=== PATIENT | female | born 1940 | race Caucasian/White ===

== ENCOUNTER → 2019-05-17 | Outpatient (CLI) | payer MEDICARE, OTHER ==
[~2019-05-17] MED LIST: ALLEGRA180 MG PO; ASPIR 8181 MG PO; CARVEDILOL6.25 MG PO; CIPRO250 M1 PO; COLACE100 MG PO; DOXYCYCLINE 10100 MG; FISH OIL 1,001000 M2 PO; LEVAQUIN 750 M750 MG PO; PREDNISONE 20 M20 M1 PO; PREDNISONE 20 M20 MG PO; SUDAFED30 MG; VICODIN 5-5001 EACH PO; ZOFRAN ODT4 MG PO; ZOFRAN ODT4 MG SUBLING; ZPAK
== END ==
LOC: M.RAD 07:36
DX: Z12.31 Encounter for screening mammogram for malignant neoplasm of breast (principal)

== ENCOUNTER → 2019-05-24 | Outpatient (CLI) | payer MEDICARE, OTHER | LOC: M.RAD 07:31 | DX: R92.1 Mammographic calcification found on diagnostic imaging of breast (principal) ==

== ENCOUNTER 2019-12-02 14:16 | Emergency (ER) | payer MEDICARE, OTHER ==
[~2019-12-02] VITALS: Ht 160 cm; Wt 55.8 kg
[2019-12-02] MEDS ORDERED: NORVASC 2.5 MG2.5 M1 PO (14:31)
[2019-12-02] MEDS ORDERED: GABAPENTIN100 MG PO (14:32)
[2019-12-02] MEDS ORDERED: CLONIDINE HCL0.2 M2 PO (14:33)
[2019-12-02 14:36] LABS: ABSOLUTE BASOPHILS 0.1 thou/uL (0.0-0.2); ABSOLUTE EOSINOPHILS 0.1 thou/uL (0.0-0.7); ABSOLUTE LYMPHOCYTES 1.6 thou/uL (0.8-5.3); ABSOLUTE MONOCYTES 0.6 thou/uL (0.0-1.2); ABSOLUTE NEUTROPHILS 3.9 thou/uL (1.6-8.1); EOSINOPHILS 2.2 %; HEMOGLOBIN 13.6 gm/dL (12.0-15.0); LYMPHOCYTES 25.3 %; MCH 29.5 pg (26.0-34.0); MCHC 33.9 g/dL (28.0-37.0); MCV 87.1 fL (80.0-100.0); MONOCYTES 9.9 %; MPV 8.8 fl. (7.2-11.1); NUCLEATED RBCS 0 /100WBC; PLATELET COUNT* 199 thou/uL (150-400); POLYS 61.6 %; RBC 4.59 mil/uL (4.20-5.00); WBC 6.4 thou/uL (4.0-11.0)
[2019-12-02 14:48] LABS: CALCIUM 8.7 mg/dL (8.5-10.1); CREATININE 1.2 mg/dL (0.6-1.3)
[2019-12-02 14:52] LABS: TOTAL BILIRUBIN 0.7 mg/dL (<0.1-1.0); TOTAL PROTEIN 7.1 g/dL (6.4-8.2)
[2019-12-02 15:31] LABS: URINE BILIRUBIN NEGATIVE (Negative); URINE BLOOD NEGATIVE (Negative); URINE CLARITY CLEAR; URINE COLOR YELLOW; URINE GLUCOSE-RANDOM NEGATIVE (Negative); URINE KETONES NEGATIVE (Negative); URINE LEUKOCYTES-REFLEX NEGATIVE (Negative); URINE NITRITE-REFLEX NEGATIVE (Negative); URINE PROTEIN NEGATIVE (Negative); URINE SPECIFIC GRAVITY 1.015 (1.005-1.030); URINE UROBILINOGEN 0.2 E.U./dl (0.2-1.0)
[2019-12-02] MEDS ORDERED: CATAPRES0.1 MG PO (16:15)
[2019-12-02] MEDS ORDERED: ONDANSETRON ODT4 MG PO (16:15)
[2019-12-02 16:33] VITALS: BP 161/64
--- NOTE | 2019-12-04 14:47 | EKG ---
[place] [address] ELECTROCARDIOGRAM REPORT Name: MARY ANN DELUCA Room: [facility]#: [id number] Admission: 12/02/19 Attend Phys: Discharge: 12/02/19 Date of : 40 Date of Service: 12/02/19 1434 Report #: [id number] THIS REPORT FOR: //name// [facility] ED Test Date: 2019-12-02 Test Time: 14:34:04 Pat Name: MARY ANN DELUCA Department: Room: Gender: F [employer]: TDS : 1940 Requested By: Lakshmi Willis Order Number: [id number] MD: Jp Nielsen Measurements Intervals [place] Rate: 76 P: 75 CO: 134 QRS: 78 QRSD: 98 T: 50 QT: 387 QTc: 436 Interpretive Statements Sinus rhythm Probable left atrial enlargement Compared to ECG 01/27/2016 12:55:30 ST (T wave) deviation no longer present Electronically Signed On 12-04-2019 14:46:23 CDT by Jp Nielsen [email or web address] <ELECTRONICALLY SIGNED> By: Jp Nielsen MD, [facility] 12/04/19 1446 1434 1434 Jp Nielsen MD, [facility] /EPI
== END 2019-12-02 16:34 | disposition home or self-care (01) ==
LOC: M.ERS 14:16
PROVIDERS: Physician Assistant
DX: I10 Essential (primary) hypertension (principal); M54.2 Cervicalgia; R11.0 Nausea; Z88.0 Allergy status to penicillin; Z88.2 Allergy status to sulfonamides; Z79.899 Other long term (current) drug therapy

== ENCOUNTER → 2019-12-18 | Outpatient (CLI) | payer MEDICARE, OTHER ==
[~2019-12-18] MED LIST changes: +CATAPRES0.1 MG PO; +CLONIDINE HCL0.2 M2 PO; +GABAPENTIN100 MG PO; +NORVASC 2.5 MG2.5 M1 PO; +ONDANSETRON ODT4 MG PO
== END ==
LOC: M.ULTRA 08:00
PROVIDERS: ATTEND Internal Medicine
DX: I70.1 Atherosclerosis of renal artery (principal); I15.0 Renovascular hypertension

== ENCOUNTER → 2020-03-14 | Outpatient (CLI) | payer MEDICARE, OTHER ==
[~2020-03-14] MED LIST changes: -CARVEDILOL6.25 MG PO; +COREG6.25 MG PO
== END ==
LOC: M.RAD 15:00
PROVIDERS: ATTEND Internal Medicine
DX: M53.3 Sacrococcygeal disorders, not elsewhere classified (principal); R19.5 Other fecal abnormalities

== ENCOUNTER → 2020-03-22 | Outpatient (CLI) | payer MEDICARE, OTHER | LOC: M.MRI 07:51 | PROVIDERS: ATTEND Internal Medicine Gastroenterology | DX: N28.1 Cyst of kidney, acquired (principal); R11.0 Nausea; R10.30 Lower abdominal pain, unspecified ==